=== PATIENT | female | born 1985 ===

== ENCOUNTER 2017-03-14 12:45 | Emergency (ER) | payer OTHER ==
[2017-03-14 13:09] VITALS: BMI 25.7
[2017-03-14 13:17] VITALS: TEMP 98.4
[2017-03-14 13:27] LABS: BASO # 0.1 K/uL (0.0-0.2); BASO % 0.5 % (0.0-2.0); EOS % 0.2 % (0.0-4.0); HEMATOCRIT 39.8 % (34.0-47.0); LYMPH % 15.8 % (20.0-40.0); MEAN CORPUSCULAR HEMOGLOBIN 29.6 pg (27.0-31.0); MEAN CORPUSCULAR HGB CONC 33.6 g/dL (33.0-37.0); MEAN PLATELET VOLUME 7.7 fL (7.2-11.7); MONO # 0.8 K/uL (0.0-0.8); RED CELL DISTRIBUTION WIDTH 12.3 % (11.5-14.5); WHITE BLOOD COUNT 12.7 K/uL (4.8-10.8)
[2017-03-14 13:38] LABS: CHLORIDE 101 mmol/L (98-107)
[2017-03-14 13:39] LABS: POTASSIUM 4.1 mmol/L (3.6-5.2); SODIUM 140 mmol/L (132-148)
[2017-03-14 13:41] LABS: ALB/GLOB RATIO 1.3 (1.0-2.1); AST/SGOT 22 U/L (14-36); BILIRUBIN,TOTAL 0.6 mg/dL (0.2-1.3); BLOOD UREA NITROGEN 14 mg/dL (7-17); CARBON DIOXIDE 25 mmol/L (22-30); GFR AFRICAN-AMERICAN > 60; TOTAL PROTEIN 7.9 g/dL (6.3-8.3)
[2017-03-14 13:42] LABS: ALKALINE PHOSPHATASE 60 U/L (38-126); ALT/SGPT 23 U/L (9-52); CALCIUM 9.9 mg/dl (8.6-10.4); GLUCOSE,RANDOM 100 mg/dL (65-105)
[2017-03-14 13:48] LABS: RBC URINE 3 /hpf (0-3); URINE BACTERIA RARE (<OCC); URINE BILIRUBIN NEGATIVE (NEGATIVE); URINE BLOOD NEGATIVE (NEGATIVE); URINE COLOR Yellow (YELLOW); URINE GLUCOSE (UA) NORMAL (Normal); URINE KETONE NEGATIVE (NEGATIVE); URINE LEUKOCYTE ESTERASE NEG Leu/uL (Negative); URINE PROTEIN NEGATIVE (NEGATIVE); URINE UROBILINOGEN NORMAL mg/dL (0.2-1.0); WBC URINE 1 /hpf (0-5)
--- NOTE | 2017-03-14 13:48 | C.PDOC ---
History Of Present Illness 31 y/o female presents to ED with c/o lower abdominal pain since waking up this morning at 6:00 AM. Patient describes pain as burning and reports multiple episodes of associated watery diarrhea. She notes that she went to work, but later called her saying diarrhea continued but is now bloody. Denies recent travel or sick contacts. Denies any medical problems. Time Seen by Provider: 03/14/17 13:03 Chief Complaint (Nursing): Abdominal Pain History Per: Patient History/Exam Limitations: no limitations Onset/Duration Of Symptoms: Hrs Current Symptoms Are (Timing): Still Present Location Of Pain/Discomfort: RLQ, LLQ Radiation Of Pain To:: None Quality Of Discomfort: Burning, "Pain" Associated Symptoms: Diarrhea. denies: Fever, Nausea, Vomiting, Urinary Symptoms Recent travel outside of the [place]: No Past Medical History Reviewed: Historical Data, Nursing Documentation, Vital Signs Vital Signs: Last Vital Signs Temp 98.4 F 03/14/17 13:09 Pulse 100 H 03/14/17 13:09 Resp 18 03/14/17 13:09 BP 142/88 03/14/17 13:09 Pulse Ox 99 03/14/17 13:48 - Medical History PMH: No Chronic Diseases - [facility] Procedures EXTRACTION OF POC, LOW CERVICAL, OPEN APPROACH (08/05/15) Family History: States: Unknown Family Hx - Social History Hx Alcohol Use: No Hx Substance Use: No - Immunization History Hx Tetanus Toxoid Vaccination: No Hx Influenza Vaccination: No Review Of Systems Except As Marked, All Systems Reviewed And Found Negative. Constitutional: Negative for: Fever, Chills Cardiovascular: Negative for: Chest Pain Respiratory: Negative for: Cough, Shortness of Breath, Wheezing Gastrointestinal: Positive for: Abdominal Pain, Diarrhea, Hematochezia. Negative for: Nausea, Vomiting, Constipation Skin: Negative for: Rash Neurological: Negative for: Headache, Dizziness Physical Exam - Physical Exam Appears: Non-toxic, No Acute Distress Skin: Warm, Dry Head: Atraumatic, Normacephalic Oral Mucosa: Moist Chest: Symmetrical Cardiovascular: Rhythm Regular Respiratory: Normal Breath Sounds, No Rales, No Rhonchi, No Wheezing Gastrointestinal/Abdominal: Bowel Sounds (normal), Soft, Tenderness (mild, bilateral lower quadrants), No Guarding, No Rebound Back: Normal Inspection, No CVA Tenderness Extremity: Normal ROM, Capillary Refill (< 2 sec.) Neurological/Psych: Oriented x3, Normal Speech, Normal Cognition ED Course And Treatment - Laboratory Results Result Diagrams: 03/14/17 13:19 03/14/17 13:19 Lab Interpretation: Abnormal (WBC 12.7 with left shift. CMP and urine normal.) O2 Sat by Pulse Oximetry: 99 (RA) Pulse Ox Interpretation: Normal - CT Scan/US CT abdomen and pelvis Other Rad Studies (CT/US): Read By Radiologist, Radiology Report Reviewed CT/US Interpretation: Accession No. : [id number]. Patient Name / ID : MEEK FERNANDEZ / [id number]. Exam Date : 03/14/2017 16:33:28 ( Approved ). Study Comment : Sex / Age : F / 31Y. Creator : BEVERLY LOOMIS MD. Dictator : BEVERLY LOOMIS MD. Tow Truck Operator : [id number] Tank Crewman : EBVERLY LOOMIS MD. Approver2 : Report Date : 03/14/2017 17:22:30. My Comment : . PROCEDURE: CT Abdomen and Pelvis with contrast. HISTORY: abdominal pain with bloody diarrhea. COMPARISON: None. TECHNIQUE: Contrast dose: 100 mL Visipaque 320. Radiation dose: Total exam DLP = 611.26 mGy-cm. This CT exam was performed using one or more of the following dose reduction techniques: Automated exposure control, adjustment of the mA and/or kV according to patient size, and/or use of iterative reconstruction technique. FINDINGS: LOWER THORAX : Unremarkable. LIVER: Normal size, contour and attenuation. Nonspecific 7 mm low attenuation lesion in the medial segment left hepatic lobe. No other mass. No biliary ductal dilatation. GALLBLADDER AND BILE DUCTS: Unremarkable. PANCREAS: Intimately related to the pancreatic tail is a low-density mass measuring approximately 2.0 x 2.5 cm. This may be pancreatic in origin. Evaluation with multiphasic contrast enhanced CT is advised (pancreatic series) . There is no pancreatic ductal dilatation. There is no peripancreatic fluid collection. SPLEEN: Unremarkable. ADRENALS: Unremarkable. No mass. KIDNEYS AND URETERS: Mid left renal cortical cyst, 1.8 cm. No other renal mass. No renal calculus or hydronephrosis. VASCULATURE: Unremarkable. No aortic aneurysm. BOWEL: Circumferential mural thickening of the inferior rectum common nonspecific. No perirectal inflammatory change noted. However, there is a discrete small rounded right perirectal fluid collection measuring 8 mm in diameter. This is of uncertain significance. The possibility of a proctitis must be considered. There are no other abnormal bowel loops identified. APPENDIX: Not identified. No secondary findings to suggest acute appendicitis. PERITONEUM: Trace fluid in the cul-de-sac. LYMPH NODES: Unremarkable. No enlarged lymph nodes. BLADDER: Unremarkable. REPRODUCTIVE: Unremarkable uterus. Intrauterine device noted. Peripherally enhancing granulated right ovarian cyst, likely ruptured or involuting cyst. This measures 2 cm in diameter. BONES: Mild anterior wedge compression deformity of the T11 vertebra of indeterminate age. No other fracture identified. OTHER FINDINGS: None. IMPRESSION: Circumferential mural thickening of the inferior rectum common nonspecific. 8 mm discrete right perirectal fluid collection. No perirectal inflammatory change. Nevertheless, proctitis is to be considered. No other abnormal bowel is identified. Possible low-density mass related to pancreatic tail, 2.0 x 2.5 cm. Recommend nonemergent evaluation with multiphasic contrast enhanced CT of the abdomen. Mild anterior wedge compression deformity of the T11 vertebra of indeterminate age. Additional minor findings as above. Progress Note: CT scan, labs, stool culture ordered. Reevaluation Time: 17:39 Reassessment Condition: Improved Disposition Counseled Patient/Family Regarding: Studies Performed, Diagnosis, Need For Followup - Disposition Referrals: [facility] [Outside] Disposition: HOME/ ROUTINE Disposition Time: 17:40 Condition: IMPROVED Instructions: Acute Diarrhea (ED) Forms: [employer] (Japanese) - Clinical Impression Clinical Impression: Diarrhea - Scribe Statement The provider has reviewed the documentation as recorded by the Scribe SM All medical record entries made by the Scribe were at my direction and personally dictated by me. I have reviewed the chart and agree that the record accurately reflects my personal performance of the history, physical exam, medical decision making, and the department course for this patient. I have also personally directed, reviewed, and agree with the discharge instructions and disposition.
[2017-03-14] MEDS ORDERED: Iohexol 240 (50 ml) PO ONE (13:54)
[2017-03-14] MEDS ORDERED: Iohexol 240 (50 ml) ONE (13:57)
[2017-03-14] MEDS ORDERED: Iodixanol 320 MG/ML 100 ML BOTTLE IV ONE ×2 (14:54→16:29)
[2017-03-14] MEDS ORDERED: Sodium Chloride 0.9% 1,000 ML IV ONE (15:15)
--- NOTE | 2017-03-14 17:24 | CT ---
PROCEDURE: CT Abdomen and Pelvis with contrast HISTORY: abdominal pain with bloody diarrhea COMPARISON: None. TECHNIQUE: Contrast dose: 100 mL Visipaque 320 Radiation dose: Total exam DLP = 611.26 mGy-cm. This CT exam was performed using one or more of the following dose reduction techniques: Automated exposure control, adjustment of the mA and/or kV according to patient size, and/or use of iterative reconstruction technique. FINDINGS: LOWER THORAX: Unremarkable. LIVER: Normal size, contour and attenuation. Nonspecific 7 mm low attenuation lesion in the medial segment left hepatic lobe. No other mass. No biliary ductal dilatation. GALLBLADDER AND BILE DUCTS: Unremarkable. PANCREAS: Intimately related to the pancreatic tail is a low-density mass measuring approximately 2.0 x 2.5 cm. This may be pancreatic in origin. Evaluation with multiphasic contrast enhanced CT is advised (pancreatic series). There is no pancreatic ductal dilatation. There is no peripancreatic fluid collection. SPLEEN: Unremarkable. ADRENALS: Unremarkable. No mass. KIDNEYS AND URETERS: Mid left renal cortical cyst, 1.8 cm. No other renal mass. No renal calculus or hydronephrosis. VASCULATURE: Unremarkable. No aortic aneurysm. BOWEL: Circumferential mural thickening of the inferior rectum common nonspecific. No perirectal inflammatory change noted. However, there is a discrete small rounded right perirectal fluid collection measuring 8 mm in diameter. This is of uncertain significance. The possibility of a proctitis must be considered. There are no other abnormal bowel loops identified. APPENDIX: Not identified. No secondary findings to suggest acute appendicitis. PERITONEUM: Trace fluid in the cul-de-sac. LYMPH NODES: Unremarkable. No enlarged lymph nodes. BLADDER: Unremarkable. REPRODUCTIVE: Unremarkable uterus. Intrauterine device noted. Peripherally enhancing granulated right ovarian cyst, likely ruptured or involuting cyst. This measures 2 cm in diameter. BONES: Mild anterior wedge compression deformity of the T11 vertebra of indeterminate age. No other fracture identified. OTHER FINDINGS: None. IMPRESSION: Circumferential mural thickening of the inferior rectum common nonspecific. 8 mm discrete right perirectal fluid collection. No perirectal inflammatory change. Nevertheless, proctitis is to be considered. No other abnormal bowel is identified. Possible low-density mass related to pancreatic tail, 2.0 x 2.5 cm. Recommend nonemergent evaluation with multiphasic contrast enhanced CT of the abdomen. Mild anterior wedge compression deformity of the T11 vertebra of indeterminate age. Additional minor findings as above.
[2017-03-14 17:46] VITALS: BP 117/85; PULSE 81; RESP 16; O2SAT 98
== END 2017-03-14 17:45 | disposition home or self-care (01) ==
LOC: C.ER 12:45
DX: R19.7 Diarrhea, unspecified (principal)
CPT/HCPCS: 74177; 80053; 81001; 83690; 84703; 85025; 87045; 96360; 99284; J7040; Q9966; Q9967

== ENCOUNTER 2017-04-19 18:57 | Emergency (ER) | payer OTHER ==
[2017-04-19 18:57] VITALS: BMI 25.7
[2017-04-19 19:05] VITALS: RESP 16
[2017-04-19] MEDS ORDERED: Sodium Chloride 0.9% 1,000 ML IV ONE (19:36)
[2017-04-19 20:08] LABS: BASO # 0.1 K/uL (0.0-0.2); BASO % 0.6 % (0.0-2.0); EOS % 0.4 % (0.0-4.0); LYMPH # 2.7 K/uL (1.0-4.3); LYMPH % 25.1 % (20.0-40.0); MEAN CELL VOLUME 88.8 fL (81.0-99.0); MEAN CORPUSCULAR HEMOGLOBIN 29.6 pg (27.0-31.0); MEAN CORPUSCULAR HGB CONC 33.4 g/dL (33.0-37.0); MEAN PLATELET VOLUME 7.4 fL (7.2-11.7); MONO # 0.7 K/uL (0.0-0.8); MONO % 6.1 % (0.0-10.0); RED CELL DISTRIBUTION WIDTH 12.7 % (11.5-14.5); WHITE BLOOD COUNT 10.8 K/uL (4.8-10.8)
[2017-04-19 20:12] LABS: RBC URINE 3 /hpf (0-3); TRANSITIONAL EPITHIAL < 1 /hpf (0-3); URINE BACTERIA RARE (<OCC); URINE BILIRUBIN NEGATIVE (NEGATIVE); URINE BLOOD NEGATIVE (NEGATIVE); URINE COLOR Yellow (YELLOW); URINE GLUCOSE (UA) NORMAL (Normal); URINE KETONE NEGATIVE (NEGATIVE); URINE LEUKOCYTE ESTERASE NEG Leu/uL (Negative); URINE PROTEIN NEGATIVE (NEGATIVE); URINE UROBILINOGEN NORMAL mg/dL (0.2-1.0); WBC URINE < 1 /hpf (0-5)
[2017-04-19 20:13] LABS: CHLORIDE 105 mmol/L (98-107); POTASSIUM 4.2 mmol/L (3.6-5.2); SODIUM 140 mmol/L (132-148)
[2017-04-19 20:15] LABS: AST/SGOT 16 U/L (14-36); BILIRUBIN,TOTAL 0.4 mg/dL (0.2-1.3); CARBON DIOXIDE 24 mmol/L (22-30); GFR AFRICAN-AMERICAN > 60
[2017-04-19 20:16] LABS: ALB/GLOB RATIO 1.4 (1.0-2.1); ALKALINE PHOSPHATASE 49 U/L (38-126); ALT/SGPT 22 U/L (9-52); BLOOD UREA NITROGEN 11 mg/dL (7-17); CALCIUM 9.2 mg/dl (8.6-10.4); GLUCOSE,RANDOM 89 mg/dL (65-105); TOTAL PROTEIN 7.4 g/dL (6.3-8.3)
--- NOTE | 2017-04-19 20:59 | C.PDOC ---
Time Seen by Provider: 04/19/17 19:19 Chief Complaint (Nursing): Dizziness/Lightheaded History Per: Patient, Family Onset/Duration Of Symptoms: Hrs (tonight) Current Symptoms Are (Timing): Still Present Associated Symptoms Preceding Syncopal Episode: Worse With Standing Possible Causative Factor(s): Other (Lack of sleep?) Fall Associated With With Symptoms: No Severity: Moderate Additional History Per: Prior Records - Symptoms Of CVA Recent Head Trauma: No Past Medical History Reviewed: Historical Data, Nursing Documentation, Vital Signs Vital Signs: Last Vital Signs Temp 98.4 F 04/19/17 19:02 Pulse 76 04/19/17 19:02 Resp 16 04/19/17 19:02 BP 127/82 04/19/17 19:02 Pulse Ox 100 04/19/17 19:02 - Medical History PMH: No Chronic Diseases Surgical History: - [facility] Procedures EXTRACTION OF POC, LOW CERVICAL, OPEN APPROACH (08/05/15) Family History: States: Unknown Family Hx - Social History Hx Tobacco Use: No Hx Alcohol Use: No Hx Substance Use: No - Immunization History Hx Tetanus Toxoid Vaccination: No Hx Influenza Vaccination: No Review Of Systems Except As Marked, All Systems Reviewed And Found Negative. Constitutional: Negative for: Fever Eyes: Negative for: Vision Change ENT: Negative for: Ear Pain (Tinnitus?), Ear Discharge Cardiovascular: Negative for: Chest Pain Respiratory: Negative for: Shortness of Breath Gastrointestinal: Positive for: Nausea. Negative for: Vomiting, Abdominal Pain , Diarrhea Genitourinary: Positive for: Dysuria, Frequency Musculoskeletal: Negative for: Neck Pain Skin: Negative for: Rash Neurological: Positive for: Dizziness. Negative for: Weakness, Numbness, Seizures, Altered Mental Status, Headache Physical Exam - Physical Exam Appears: Non-toxic, No Acute Distress Skin: Normal Color, Warm, Dry, No Rash Head: Atraumatic, Normacephalic Eye(s): bilateral: Normal Inspection, PERRL, EOMI Ear(s): Bilateral: Normal Neck: Normal ROM, Supple Cardiovascular: Rhythm Regular Respiratory: Normal Breath Sounds, No Accessory Muscle Use Gastrointestinal/Abdominal: Soft, No Tenderness Back: No CVA Tenderness Extremity: Normal ROM, No Pedal Edema, No Calf Tenderness Neurological/Psych: Oriented x3, Normal Speech, Normal Cognition, Normal Cranial Nerves, No Cerebellar Signs, Normal Motor, Normal Sensation ED Course And Treatment - Laboratory Results Result Diagrams: 04/19/17 19:59 04/19/17 19:59 Lab Interpretation: No Acute Changes Urine POC: Negative ECG: Interpreted By Me, Viewed By Me ECG Rhythm: Sinus Rhythm, Nonspecific Changes ECG Interpretation: No Acute Changes Rate From EC O2 Sat by Pulse Oximetry: 100 Pulse Ox Interpretation: Normal Progress - Interventions Interventions:: Observation, Intravenous fluid - Medications Administered Oral: Other (Meclizine) Intravenous: Antiemetic, H-2 martha - Data Reviewed Data Reviewed: Lab, EKG, Old records - Patient Status Patient status: Completely improved - Continuity of Care Discussed patient case with:: Patient, Family-HIPPA compliant, ED Nurse - Patient Plan Patient Plan: Discharge, F/U with PCP Disposition Counseled Patient/Family Regarding: Studies Performed, Diagnosis, Need For Followup, Rx Given - Disposition Referrals: [facility] [Outside] Disposition: HOME/ ROUTINE Disposition Time: 21:00 Condition: IMPROVED Additional Instructions: Drink plenty of fluids. Follow up in the clinic for further evaluation and treatment. Return to the ER if you develop vomiting, pass out, worsening of symptoms or if you have any other concerns. Prescriptions: Famotidine [Pepcid] 20 mg PO BID #30 tab Meclizine [Meclizine*] 25 mg PO Q6 PRN #30 tab PRN Reason: Dizziness Instructions: Dizziness (ED) Print Language: OCCITAN - Clinical Impression Clinical Impression: Dizziness
[2017-04-19 21:09] VITALS: BP 121/67; PULSE 72; TEMP 97; O2SAT 99
--- NOTE | 2017-04-21 01:39 | CARD ---
APPROVED REPORT EKG Measurement Heart [id number] <Conclusion> Normal sinus rhythm Incomplete right bundle branch block Borderline ECG
== END 2017-04-19 21:09 | disposition home or self-care (01) ==
LOC: C.ER 18:57
DX: R42 Dizziness and giddiness (principal)
CPT/HCPCS: 80053; 81001; 83690; 84703; 85025; 87086; 93005; 96374; 96375; 99285; J2765; J7040